=== PATIENT | female | born 1965 | race Caucasian/White ===

== ENCOUNTER 2018-05-27 11:16 | Day surgery (SDC) | payer OTHER ==
[2018-05-27 11:33] VITALS: BMI 26.6
--- NOTE | 2018-05-27 11:49 | HP ---
History & Physical Update - History History: No Change (Consent signed and witnessed) - Physical Physical: No Change - Assessment Assessment: No Change - Plan Plan: No Change
--- NOTE | 2018-05-27 13:38 | OP ---
Operative Note - Note: Operative Date: 05/27/18 Pre-Operative Diagnosis: 52yo Postmenopausal female with retained unknown IUD Operation: Hysteroscopy, Adhisiolysis, Paraguard IUD removal, D&C Findings: Paraguard IUD imbedded in the region of Left cornua Removed intact Post-Operative Diagnosis: Other (Imbedded Paraguard IUD, Endometrial adhesions) Surgeon: Breanna Benavides Anesthesiologist/CLINIC COORDINATOR: Vinicius Zayas Anesthesia: MAC Specimens Removed: 1.Intact Paraguard IUD. 2.Endometrial curettings Estimated Blood Loss (mls): 10 Drains & Tubes with Location: 400 Fluid deficit Drains, Volume Out (mls): 100 Fluid Volume Replaced (mls): 400 Operative Report Dictated: Yes
[2018-05-27] MEDS ORDERED: MIDAZOLAM HCL 2 MG/2 ML SINGLE DOSE VIAL ONE (13:48)
[2018-05-27] MEDS ORDERED: oxyCODONE HCL 5 MG TABLET PO PRN (15:06)
[2018-05-27] MEDS ORDERED: IBUPROFEN 800 MG/8 ML IJ IVPB PRN (15:06)
[2018-05-27] MEDS ORDERED: ONDANSETRON 4 MG/2 ML VIAL IVPUSH PRN (15:06)
[2018-05-27] MEDS ORDERED: IBUPROFEN 600 MG TABLET (FP) PO PRN (15:06)
[2018-05-27 15:11] VITALS: TEMP 97.6
[2018-05-27] MEDS ORDERED: ELECTROLYTE-148 SOLN 1,000 ML IV SCH (15:15)
[2018-05-27 16:34] VITALS: BP 110/69; PULSE 75
--- NOTE | 2018-05-28 00:14 | OP ---
DATE OF OPERATION: 05/27/2018 PREOPERATIVE DIAGNOSIS: A 52-year-old post menopausal female who has returned unknown type intrauterine device. OPERATION: Hysteroscopy, adhesiolysis Paragard intrauterine device removal, dilation and curettage. FINDINGS: Paragard IUD imbedded in the region of the left cornua, removed intact. POSTOPERATIVE DIAGNOSIS: A 52-year-old post menopausal female who has returned unknown type intrauterine device. Embedded Paragard IUD and endometrial adhesions. SURGEON: Breanna Benavides M.D. ANESTHESIOLOGIST: Vinicius Zayas CRNA ANESTHESIA: MAC SPECIMENS: Removed: 1. Intact Paragard IUD. 2. Endometrial curetting. DESCRIPTION OF OPERATIVE PROCEDURE: After ensuring informed consent, patient was taken to the operating room where she placed in dorsal lithotomy position. Perineum and vagina were prepped and draped in a sterile fashion. Hysteroscope was assembled and after insuring the patient was anesthetized, the Antonio speculums were placed into the vagina. The anterior cervical loop was articulated with single-toothed tenaculum. The cervix was gradually dilated with dilators, and polyp forceps was introduced into the uterus under direct sonographic guidance. However, IUD although visualized, was not able to be delivered successfully upon several attempts, so hysteroscope was and inserted into the cervical canal where IUD was immediately visualized. The hysteroscope was atraumatically inserted into the uterus where bilateral cornea was visualized and it was noted that IUD was embedded in the area of the left cornua. The hysteroscopic forceps were introduced and found that adhesions were crushed with hysteroscopic forceps. Hysteroscope subsequently was removed, and several other instruments were used in attempt to remove the IUD. Subsequently the IUD hook was used and IUD was grabbed by the top portion of the T and brought through the cervix. Subsequently the sharp 1-gauge curet was used to scrape intrauterine endometrial curettings. All instruments were removed and an anterior cervical lip was noted. The UR46 needle was used with 2 [id number] to repair the tear, which was hemostatic. Excellent hemostasis was achieved. All instruments were removed from the vagina and the cervix. Sponge, count, and instrument correct x2. Estimated blood loss 10 mL. Patient received 400 mL of fluids and sustained 400 mL fluid deficit. Her bladder was drained, 100 mL of urine. Patient tolerated procedure well and was extubated and brought to the recovery room in stable condition. Farhan [id number]
--- NOTE | 2018-05-29 17:47 | PATH ---
Surgical Pathology Report Patient Name: ALEX SINCLAIR Med. Rec. #: [id number] /Age/Gender: 1965 (Age: 52) / F Account: [id number] Location: [facility] SURGICAL Taken: 05/27/2018 Received: 05/28/2018 Reported: 05/29/2018 Physicians: Breanna Benavides M.D. Specimen(s) Received A: IUD B: ENDOMETRIAL CURETTINGS Clinical History Retained IUD Final Diagnosis A. IUD, REMOVAL: INTRAUTERINE DEVICE, GROSS EXAMINATION ONLY. B. ENDOMETRIAL CURETTINGS: NO ENDOMETRIAL TISSUE PRESENT. SMOOTH MUSCLE BUNDLES AND UNREMARKABLE SQUAMOUS EPITHELIUM NOTED. Electronically Signed Hailey Bravo M.D. Gross Description A. Received fresh labeled "IUD," is a 3.5 cm in length T-shaped device, consistent with an IUD. No soft tissue is present. No sections are submitted, gross only. B. Received in formalin labeled "endometrial curettings," is a 1.3 x 0.6 x 0.2 cm aggregate of eugene-brown soft tissue fragments. The specimen is entirely submitted in one cassette. /05/28/2018 saudi05/28/2018
== END 2018-05-27 17:15 | disposition home or self-care (01) ==
LOC: JASU-SURG 11:16
PROVIDERS: ATTEND Obstetrics & Gynecology
PROC: 0UDB7ZZ Extraction of Endometrium, Via Natural or Artificial Opening (ICD-10-PCS; 2018-05-27)
PROC: 0UJD8ZZ Inspection of Uterus and Cervix, Via Natural or Artificial Opening Endoscopic (ICD-10-PCS; 2018-05-27)
PROC: 0UC98ZZ Extirpation of Matter from Uterus, Via Natural or Artificial Opening Endoscopic (ICD-10-PCS; principal; 2018-05-27 12:30)
PROC: 0UN98ZZ Release Uterus, Via Natural or Artificial Opening Endoscopic (ICD-10-PCS; 2018-05-27 12:30)
DX: Z30.432 Encounter for removal of intrauterine contraceptive device (principal); Z78.0 Asymptomatic menopausal state; N85.6 Intrauterine synechiae
CPT/HCPCS: 76998-TC; 88300-TC; 88305-TC